=== PATIENT | male | born 1970 | race Caucasian/White ===

== ENCOUNTER 2019-02-06 06:30 | Day surgery (SDC) | payer BC ==
[2019-02-05 14:36] VITALS: BMI 40.8
[2019-02-06] MEDS ORDERED: Bupivacaine HCl 0.5%/Epinephrine 1:200,000/PF 30 ml Vial ONE (08:26)
[2019-02-06] MEDS ORDERED: Thrombin 5000 UNITS/5 ML VIAL ONE (08:26)
[2019-02-06] MEDS ORDERED: Fentanyl 100 MCG/2 ML VIAL ONE (08:29)
[2019-02-06] MEDS ORDERED: HYDROmorphone 0.5 MG/0.5 ML SYRINGE ONE (08:29)
[2019-02-06] MEDS ORDERED: Tamsulosin HCl 0.4 MG CAP ONE (10:42)
[2019-02-06] MEDS ORDERED: Acetaminophen/Codeine 30-300mg Tablet ONE (11:49)
[2019-02-06] MEDS ORDERED: Rocuronium Bromide 10 MG/ML (10ML VIAL) ONE (14:54)
[2019-02-06] MEDS ORDERED: PROPOFOL 200 MG/20 ML VIAL ONE (14:54)
[2019-02-06] MEDS ORDERED: Lidocaine 1% PF 5 ML VIAL ONE (14:54)
[2019-02-06] MEDS ORDERED: Glycopyrrolate 0.2 MG/ML 5 ML SYRINGE ONE (14:54)
[2019-02-06] MEDS ORDERED: Ketorolac Tromethamine 30 MG/ML VIAL ONE (14:54)
[2019-02-06] MEDS ORDERED: Ondansetron PF 4 MG/2 ML Vial ONE (14:54)
[2019-02-06] MEDS ORDERED: Dexamethasone 20 MG/5 ML VIAL ONE (14:54)
--- NOTE | 2019-02-06 16:55 | EKG ---
Test Reason : PREOP Blood Pressure : / mmHG Vent. Rate : 064 BPM Atrial Rate : 064 BPM P-R Int : 142 ms QRS Dur : 092 ms QT Int : 400 ms P-R-T Axes : 050 034 023 degrees QTc Int : 412 ms Normal sinus rhythm Early repolarization Normal ECG No previous ECGs available Confirmed by DR. Thania STAHL ([id number]) on 02/06/2019 4:55:19 PM Referred By: Gabriel TAYLOR Confirmed By:DR. Thania STAHL
--- NOTE | 2019-02-09 07:56 | OP ---
DATE OF PROCEDURE: 02/06/2019 UNDERGROUND DISTRIBUTION ENGINEER: Dany Shrestha PA-C INDICATION: Pain. DIAGNOSIS: Right L5 radiculopathy. PROCEDURE: Right L4 diskectomy. ANESTHESIA: General. DESCRIPTION OF PROCEDURE: The patient was brought into the operating room and placed under general anesthesia. He was flipped from the supine to prone position on operating room table. A linear incision was planned over the L4 segment. After prepping and draping and after an appropriate preoperative pause, the incision was created. The soft tissues were swept right of midline. A self-retaining retractor was placed for optimal exposure. High-speed cutting drill bit as well as 2, 3, and 4 mm Kerrison's were used to perform a laminectomy along the inferior aspect of L4 and the superior aspect of L5. The descending L5 nerve root was identified and mobilized medially with a nerve root retractor. An annulotomy was performed. Large disk protuberant for disk material was removed until the descending L5 nerve root was well decompressed. The wound was then irrigated. Hemostasis was maintained throughout. The wound was then closed in anatomic layers and a pressure dressing was applied. There were no known procedural complications. Job ID: [id number]
== END 2019-02-06 12:15 | disposition home or self-care (01) ==
LOC: SDC 06:30
PROVIDERS: ATTEND Neurological Surgery
PROC: 0ST20ZZ Resection of Lumbar Vertebral Disc, Open Approach (ICD-10-PCS; principal; 2019-02-06)
DX: M51.16 Intervertebral disc disorders with radiculopathy, lumbar region (principal); I10 Essential (primary) hypertension; E78.5 Hyperlipidemia, unspecified; G47.30 Sleep apnea, unspecified; E66.9 Obesity, unspecified; Z68.41 Body mass index [BMI] 40.0-44.9, adult; Z99.89 Dependence on other enabling machines and devices
CPT/HCPCS: 76000; 93005; 93010; J0670; J0690; J1100; J1170; J1885; J2001; J2405; J2704; J3010